=== PATIENT | female | born 1975 | race Hispanic/Latino ===

== ENCOUNTER 2017-05-11 00:54 | Emergency (ER) | payer SELFPAY ==
[2017-05-11 00:55] VITALS: BMI 43.2
[2017-05-11 01:14] VITALS: BP 134/97; PULSE 90; RESP 18; TEMP 98.6; O2SAT 100
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
== END 2017-05-11 02:50 | disposition left against medical advice (07) ==
LOC: ED 00:54
DX: S09.90XA Unspecified injury of head, initial encounter (principal); Y08.89XA Assault by other specified means, initial encounter; Y93.89 Activity, other specified; Y92.89 Other specified places as the place of occurrence of the external cause